=== PATIENT | male | born 1990 | race Caucasian/White ===

== ENCOUNTER 2018-02-27 14:48 | Emergency (ER) | payer MEDICAID ==
[~2018-02-27] VITALS: Ht 182.9 cm; Wt 120.0 kg
[~2018-02-27 14:48] MED LIST: PHEN100C4 PO
[2018-02-27 15:02] VITALS: BP 122/81
== END 2018-02-27 15:31 | disposition left against medical advice (07) ==
LOC: ER 14:48
DX: G40.909 Epilepsy, unspecified, not intractable, without status epilepticus (principal); Z91.14 Patient's other noncompliance with medication regimen
CPT/HCPCS: 82962; 99283